=== PATIENT | female | born 1970 ===

== ENCOUNTER 2020-08-27 08:36 | Outpatient (CLI) | payer OTHER ==
--- NOTE | 2020-08-27 11:13 | ULT ---
THYROID ULTRASOUND: HISTORY: Hypothyroidism. FINDINGS: Thyroid isthmus: 0.54 cm. Right thyroid lobe: 2.3 x 5.8 x 2.0 cm. Left thyroid lobe: 2.4 x 7.0 x 2.0 cm. Thyroid nodules: Thyroid isthmus: 0.5 x 0.3 x 0.5 cm hypoechoic nodule. Left thyroid lobe: Complex 3.1 x 1.9 x 3.3 cm nodule in the upper pole of the left thyroid lobe. Ther e is an associated cystic component measuring 1.2 x 1.0 x 1.0 cm. IMPRESSION: 1. Solid/cystic nodule in the upper pole of the left thyroid lobe. 2. Level TR 2. Not suspicious. Additional follow-up imaging is not required. Transcribed Date/Time: 08/27/2020 11:27 AM
== END 2020-08-27 08:37 | disposition home or self-care (01) ==
LOC: SCSULT 08:36
PROVIDERS: ATTEND Family Medicine
DX: E04.1 Nontoxic single thyroid nodule (principal)
CPT/HCPCS: 76536